=== PATIENT | male | born 1980 | race Caucasian/White ===

== ENCOUNTER 2023-04-14 14:10 | Observation (INO) | payer SELFPAY ==
[~2023-04-14] VITALS: Ht 182.9 cm; Wt 74.7 kg
[2023-04-14] MEDS ORDERED: NS IV 1000 ML 1,000 ML IV STA ×2 (15:12→16:13)
[2023-04-14] MEDS ORDERED: ONDANSETRON 4 MG/2 ML (SDV) Z0FRAN IVP ONE (15:15)
--- NOTE | 2023-04-14 15:17 | ED General ---
General Chief Complaint: Dizziness/Syncope Stated Complaint: DIZZY | DIFFICULTY WALKING | BLURRY VISION Nursing Triage Note: PT AMB TO ED BY POV WITH C/O DIZZINESS, SHAKINESS, MUSCLE CRAMPS, N/V, BLURRED VISION, AND LIU BEGINNING TODAY AROUND NOON. PT REPORTS HE WAS ROXANE WHEN SX STARTED, FELT FINE THIS MORNING. Source of Information: Patient Exam Limitations: No Limitations (SHONNA VANCE) History of Present Illness Date Seen by Provider: Apr 14, 2023 Time Seen by Provider: 15:14 Initial Comments Patient is a 42-year-old male who presents the ED with dizziness, shaking, diffuse muscle cramps, nausea with vomiting blurred vision and headache. Symptoms started around 12:00 today. 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 Started not feeling well started having shakiness and muscle cramps. Reported a diffuse headache and denies worst headache of his life. Started having blurry vision right before arrival but that improved. Reports cramps throughout his upper and lower extremities. Vomited 3 times right before arrival and noted a small blood tinge in his vomit with his last episode. Denies taking thing for pain. States he was fine this morning. Denies of any visual loss, unilateral weakness or sensory changes, change in mental status. According to family he is at his normal baseline. Patient is diaphoretic. Denies history of kidney disease, drug use, CHF, coronary artery disease, COPD. History of smoking. Denies body aches, chills, abdominal pain, diarrhea, dysuria, decreased urine output, cough, sohrtness of breath. (SHONNA VANCE) Allergies and Home Medications Allergies Coded Allergies: No Known Drug Allergies (Unverified , 04/14/23) Patient Home Medication List Home Medication List Reviewed: Yes (SHONNA VANCE) No Active Prescriptions or Reported Meds Review of Systems Review of Systems Constitutional: No chills; diaphoresis, dizziness, malaise, weakness EENTM: No ear pain, No double vision Respiratory: No cough Cardiovascular: No chest pain Genitourinary: No decreased output Musculoskeletal: No back pain, No joint pain Skin: No change in color, No change in hair/nails Psychiatric/Neurological: Denies Anxiety, Denies Depressed (SHONNA VANCE) All Other Systems Reviewed Negative Unless Noted: Yes (SHONNA VANCE) Past Fnjnlcb-Lvghlq-Kluaem Hx Patient Social History Tobacco Use?: Yes Tobacco type used: Cigarettes Smoking Status: Current Everyday Smoker Use of E-Cig and/or Vaping dev: No Substance use?: No Alcohol Use?: Yes Alcohol Frequency: Couple times a week Pt feels they are or have been: No (SHONNA VANCE) Immunizations Up To Date Influenza Vaccine Up-to-Date: No; Not Current First/Initial COVID19 Vaccinat: N/A (SHONNA VANCE) Past Medical History Surgery/Hospitalization HX: [facility] (SHONNA VANCE) Physical Exam Vital Signs Vital Signs - First Documented 04/14/23 14:40 Temp 36.7 Pulse 107 Resp 18 B/P (MAP) 143/79 (100) Pulse Ox 97 O2 Delivery Room Air (KATLYN DECKER MD) Vital Signs Capillary Refill : Less Than 3 Seconds (SHONNA VANCE) Height, Weight, BMI Height: '" Weight: lbs. oz. kg; 23.00 BMI Method: General Appearance: WD/WN, Other (Diaphoretic) Eyes: Bilateral Eye Normal Inspection, Bilateral Eye PERRL HEENT: PERRL/EOMI, TMs Normal, Normal ENT Inspection, Pharynx Normal Neck: Full Range of Motion, Normal Inspection, Non Tender, Supple Respiratory: Chest Non Tender, Lungs Clear, Normal Breath Sounds Cardiovascular: No Edema, No Gallop, No JVD, No Murmur, Tachycardia Gastrointestinal: Normal Bowel Sounds, No Organomegaly Back: Normal Inspection, No CVA Tenderness, No Vertebral Tenderness Extremity: Normal Capillary Refill, Normal Inspection, Normal Range of Motion Neurologic/Psychiatric: Alert, Oriented x3, No Motor/Sensory Deficits, Normal Mood/Affect, boss dyer II-XII Norm as Tested Skin: Normal Color (SHONNA VANCE) Focused Exam Lactate Level 04/14/23 16:02: Lactic Acid Level 3.01*H (KATLYN DECKER MD) Lactic Acid Level Laboratory Tests Test 04/14/23 16:02 Lactic Acid Level 3.01 MMOL/L (0.50-2.00) *H (KATLYN DECKER MD) Progress/Results/Core Measures Suspected Sepsis SIRS Temperature: Pulse: 107 Respiratory Rate: 18 Laboratory Tests 04/14/23 15:13: White Blood Count 12.2H Blood Pressure 143 /79 Mean: 100 04/14/23 16:02: Lactic Acid Level 3.01*H Laboratory Tests 04/14/23 15:13: Creatinine 1.12, Platelet Count 213, Total Bilirubin 1.2H (SHONNA VANCE) Results/Orders Lab Results Laboratory Tests Test 04/14/23 15:13 04/14/23 16:02 04/14/23 17:13 Range/Units White Blood Count 12.2 H 4.3-11.0 10^3/uL Red Blood Count 4.65 4.30-5.52 10^6/uL Hemoglobin 15.6 13.3-17.7 g/dL Hematocrit 45 40-54 % Mean Corpuscular Volume 96 80-99 fL Mean Corpuscular Hemoglobin 34 25-34 pg Mean Corpuscular Hemoglobin Concent 35 32-36 g/dL Red Cell Distribution Width 13.8 10.0-14.5 % Platelet Count 213 130-400 10^3/uL Mean Platelet Volume 10.8 9.0-12.2 fL Immature Granulocyte % (Auto) 1 % Neutrophils (%) (Auto) 84 H 42-75 % Lymphocytes (%) (Auto) 10 L 12-44 % Monocytes (%) (Auto) 5 0-12 % Eosinophils (%) (Auto) 0 0-10 % Basophils (%) (Auto) 0 0-10 % Neutrophils # (Auto) 10.2 H 1.8-7.8 10^3/uL Lymphocytes # (Auto) 1.3 1.0-4.0 10^3/uL Monocytes # (Auto) 0.7 0.0-1.0 10^3/uL Eosinophils # (Auto) 0.0 0.0-0.3 10^3/uL Basophils # (Auto) 0.1 0.0-0.1 10^3/uL Immature Granulocyte # (Auto) 0.1 0.0-0.1 10^3/uL Sodium Level 135 135-145 MMOL/L Potassium Level 5.4 H 3.6-5.0 MMOL/L Chloride Level 97 L 98-107 MMOL/L Carbon Dioxide Level 18 L 21-32 MMOL/L Anion Gap 20 H 5-14 MMOL/L Blood Urea Nitrogen 8 7-18 MG/DL Creatinine 1.12 0.60-1.30 MG/DL Estimat Glomerular Filtration Rate 84 BUN/Creatinine Ratio 7 Glucose Level 102 70-105 MG/DL Calcium Level 10.4 H 8.5-10.1 MG/DL Corrected Calcium 8.5-10.1 MG/DL Magnesium Level 2.2 1.6-2.4 MG/DL Total Bilirubin 1.2 H 0.1-1.0 MG/DL Aspartate Amino Transf (AST/SGOT) 214 H 5-34 U/L Alanine Aminotransferase (ALT/SGPT) 146 H 0-55 U/L Alkaline Phosphatase 79 40-136 U/L Total Creatine Kinase 478 H 30-200 U/L Total Protein 10.5 H 6.4-8.2 GM/DL Albumin 5.6 H 3.2-4.5 GM/DL Lipase 16 8-78 U/L Serum Alcohol 61 H <10 MG/DL Lactic Acid Level 3.01 *H 0.50-2.00 MMOL/L Urine Color YELLOW Urine Clarity CLEAR Urine pH 6.0 5-9 Urine Specific [place] 1.015 L 1.016-1.022 Urine Protein 2+ H NEGATIVE Urine Glucose (UA) NEGATIVE NEGATIVE Urine Ketones NEGATIVE NEGATIVE Urine Nitrite NEGATIVE NEGATIVE Urine Bilirubin NEGATIVE NEGATIVE Urine Urobilinogen 1.0 < = 1.0 MG/DL Urine Leukocyte Esterase NEGATIVE NEGATIVE Urine RBC (Auto) TRACE-I H NEGATIVE Urine RBC NONE /HPF Urine WBC NONE /HPF Urine Squamous Epithelial Cells NONE /HPF Urine Crystals NONE /LPF Urine Bacteria NEGATIVE /HPF Urine Casts PRESENT /LPF Urine Hyaline Casts 0-2 H /LPF Urine Mucus NEGATIVE /LPF Urine Culture Indicated NO Urine Opiates Screen NEGATIVE NEGATIVE Urine Oxycodone Screen NEGATIVE NEGATIVE Urine Methadone Screen NEGATIVE NEGATIVE Urine Propoxyphene Screen NEGATIVE NEGATIVE Urine Barbiturates Screen NEGATIVE NEGATIVE Ur Tricyclic Antidepressants Screen NEGATIVE NEGATIVE Urine Phencyclidine Screen NEGATIVE NEGATIVE Urine Amphetamines Screen NEGATIVE NEGATIVE Urine Methamphetamines Screen NEGATIVE NEGATIVE Urine Benzodiazepines Screen NEGATIVE NEGATIVE Urine Cocaine Screen NEGATIVE NEGATIVE Urine Cannabinoids Screen NEGATIVE NEGATIVE (KATLYN DECKER MD) Vital Signs/I&O 04/14/23 14:40 Temp 36.7 Pulse 107 Resp 18 B/P (MAP) 143/79 (100) Pulse Ox 97 O2 Delivery Room Air (KATLYN DECKER MD) Vital Signs/I&O Capillary Refill : Less Than 3 Seconds (SHONNA VANCE) Blood Pressure Mean: 100 ECG Comment Sinus rhythm, 76 bpm, QRS duration 89 MS, QTc 420 MS (SHONNA VANCE) Departure Communication (Admissions) Time/Spoke to Admitting Phy: 16:[address] Purvis general hospitalist. (SHONNA VANCE) Communication (PCP) Patient presents to the ED for dizziness, lightheadedness, blurry vision, vomiting, muscle cramping. Started around 12:00. 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 On arrival patient is diaphoretic and tachycardic. Muscle contractions noted. Started on a IV and started on fluids. CBC, CMP, magnesium, CPK, urinalysis, drug screen, alcohol level was obtained. Patient states he did drink alcohol over the weekend. Denies daily alcohol use. Denies of any other known medical problems. History of smoking. CBC shows slight elevated white blood count 12.2. Chemistry showed potassium 5.4, chloride 97, anion gap of 20 with normal kidney function. Total bilirubin 1.2, AST 214, ALT 146. Lactic acid was 3. CPK 478. Patient was given a second liter of fluid. Concern for early rhabdo my lysis. Change in liver function which may be result from alcohol as his alcohol level was 61. Hyperkalemia likely secondary to rhabdo. EKG did not show any evidence of arrhythmia, T wave changes, ST depression, prolonged QRS duration. Patient received Zofran for nausea. Did vomited 3-4 times here. Did have a small episode of bright red-tinged blood in his vomit. Had a soft abdomen without any specific tenderness. Imaging was held. Denies of any dark tarry stool. Contractions started to improve some as well as a cramping. Due to the elevated lactic acid, change in CPK with electrolyte abnormalities patient will be admitted for IV fluids. Patient was discussed with Dr. Purvis who agreed to accept the patient. (SHONNA VANCE) Impression Primary Impression: Rhabdomyolysis Additional Impression: Elevated liver enzymes Disposition: ADMITTED INPATIENT Condition: Stable Admissions Decision to Admit Reason: Admit from ER (General) Decision to Admit/Date: Apr 14, 2023 Time/Decision to Admit Time: 16:36 (SHONNA VANCE) Departure-Patient Inst. Referrals: NO,LOCAL PHYSICIAN (PCP/Family) Primary Care Physician Scripts No Active Prescriptions or Reported Meds ATTENDING PHYSICIAN NOTE: I was physically present as attending physician in the emergency department during the care of this patient, but I was not directly involved in the decision making or delivery of care for this patient. (KATLYN DECKER MD) SHONNA VANCE Apr 14, 2023 15:17 KATLYN DECKER MD Apr 16, 2023 04:39
[2023-04-14 15:20] LABS: BASOPHILS # (AUTO) 0.1 10^3/uL (0.0-0.1); BASOPHILS % (AUTO) 0 % (0-10); EOSINOPHILS % (AUTO) 0 % (0-10); HEMATOCRIT 45 % (40-54); HEMOGLOBIN 15.6 g/dL (13.3-17.7); LYMPHOCYTES # (AUTO) 1.3 10^3/uL (1.0-4.0); LYMPHOCYTES % (AUTO) 10 % (12-44); MEAN CORPUSCULAR HEMOGLOBIN 34 pg (25-34); MEAN CORPUSCULAR HGB CONC 35 g/dL (32-36); MEAN CORPUSCULAR VOLUME 96 fL (80-99); MEAN PLATELET VOLUME 10.8 fL (9.0-12.2); MONOCYTES # (AUTO) 0.7 10^3/uL (0.0-1.0); MONOCYTES % (AUTO) 5 % (0-12); NEUTROPHILS # (AUTO) 10.2 10^3/uL (1.8-7.8); NEUTROPHILS % (AUTO) 84 % (42-75); PLATELET COUNT 213 10^3/uL (130-400); WHITE BLOOD COUNT 12.2 10^3/uL (4.3-11.0)
[2023-04-14 15:36] LABS: ALBUMIN 5.6 GM/DL (3.2-4.5); CHLORIDE 97 MMOL/L (98-107); POTASSIUM 5.4 MMOL/L (3.6-5.0); SODIUM 135 MMOL/L (135-145)
[2023-04-14 15:38] LABS: CALCIUM 10.4 MG/DL (8.5-10.1)
[2023-04-14 15:39] LABS: GLUCOSE 102 MG/DL (70-105); TOTAL PROTEIN 10.5 GM/DL (6.4-8.2)
[2023-04-14 15:40] LABS: CARBON DIOXIDE 18 MMOL/L (21-32)
[2023-04-14 15:41] LABS: BILIRUBIN,TOTAL 1.2 MG/DL (0.1-1.0)
[2023-04-14 15:42] LABS: ALKALINE PHOSPHATASE 79 U/L (40-136); CREATININE SERUM 1.12 MG/DL (0.60-1.30); GFR ESTIMATED 84
[2023-04-14 15:43] LABS: BUN/CREATININE RATIO 7
[2023-04-14 15:45] LABS: ALANINE AMINOTRANSFERASE 146 U/L (0-55); MAGNESIUM 2.2 MG/DL (1.6-2.4)
[2023-04-14 15:46] LABS: CREATINE KINASE 478 U/L (30-200); LIPASE 16 U/L (8-78)
[2023-04-14 17:20] LABS: BILIRUBIN,URINE NEGATIVE (NEGATIVE); CLARITY,URINE CLEAR; COLOR,URINE YELLOW; GLUCOSE, URINE (UA) NEGATIVE (NEGATIVE); KETONES,URINE NEGATIVE (NEGATIVE); LEUKOCYTE ESTERASE ,URINE NEGATIVE (NEGATIVE); NITRITE,URINE NEGATIVE (NEGATIVE); PROTEIN,URINE 2+ (NEGATIVE)
[2023-04-14 17:27] VITALS: BP 146/87
[2023-04-14] MEDS ORDERED: CALCIUM CARBONATE 500 MG (TUMS) TAB.CHEW PO PRN (17:30)
[2023-04-14] MEDS ORDERED: ONDANSETRON 4 MG/2 ML (SDV) Z0FRAN IV PRN (17:30)
[2023-04-14] MEDS ORDERED: MELATONIN 3 MG TABLET PO PRN (17:30)
[2023-04-14] MEDS ORDERED: polyethylene glycoL POWDER 17 GM (MIRALAX) PACK PO PRN (17:30)
[2023-04-14] MEDS ORDERED: ANTACID SUSP 30 ML UDC (MYLANTA) PO PRN (17:30)
[2023-04-14 17:37] LABS: AMPHETAMINE SCREEN, URINE NEGATIVE (NEGATIVE); BARBITURATE SCREEN URINE NEGATIVE (NEGATIVE); BENZODIAZEPINES SCREEN URINE NEGATIVE (NEGATIVE); CANNABINOID SCREEN, URINE NEGATIVE (NEGATIVE); COCAINE SCREEN URINE NEGATIVE (NEGATIVE); METHADONE STAT NEGATIVE (NEGATIVE); OPIATE SCREEN URINE NEGATIVE (NEGATIVE); OXYCODONE STAT NEGATIVE (NEGATIVE); PROPOXYPHENE STAT NEGATIVE (NEGATIVE); TRICYCLIC ANTIDEPRESSANTS SCRE NEGATIVE (NEGATIVE)
[2023-04-14 17:40] LABS: BACTERIA,URINE NEGATIVE /HPF; HYALINE CASTS, URINE 0-2 /LPF
[2023-04-14] MEDS: NS IV 1000 ML 1,000 ML IV SCH (17:48)
[2023-04-14] MEDS ORDERED: ACETAMINOPHEN 500 MG TAB (TYLENOL) PO PRN (19:30)
[2023-04-14 20:03] VITALS: BP 149/76
[2023-04-14 23:10] VITALS: BP 133/75
[2023-04-15] MEDS: NS IV 1000 ML 1,000 ML IV SCH ×3 (01:16→13:51)
[2023-04-15 03:42] VITALS: BP 133/78
[2023-04-15 05:38] LABS: HEMOGLOBIN 13.3 g/dL (13.3-17.7)
[2023-04-15 05:51] LABS: ALBUMIN 4.1 GM/DL (3.2-4.5); BILIRUBIN,TOTAL 1.7 MG/DL (0.1-1.0); CALCIUM 8.8 MG/DL (8.5-10.1); CREATININE SERUM 0.75 MG/DL (0.60-1.30); POTASSIUM 3.9 MMOL/L (3.6-5.0)
[2023-04-15 07:23] VITALS: BP 149/82
--- NOTE | 2023-04-15 10:57 | History & Physical-Hospitalist ---
History of Present Illness HPI/Chief Complaint Patient is a 42-year-old male who presented to the emergency department with muscle cramping. 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 He states they were very severe and he could see the cramps. He also had some nausea and vomiting and got dizzy. He was found to have an elevated CK in the ER and was unable to tolerate oral intake so was admitted for observation. This morning he reports that his muscles are still sore but he has had no further cramping and is feeling much better. He has already been up and ambulated to t he bathroom. He has not yet eaten very much though but has not vomited again since yesterday. Source: patient Date Seen 04/15/23 Time Seen by a Provider: 10:56 Attending Physician No,Local Physician PCP Admitting Physician: Ryan Purvis MD Attending Physician: Ryan Purvis MD Referring Physician Date of Admission Apr 14, 2023 at 17:16 Home Medications & Allergies Home Medications Reviewed patient Home Medication Reconciliation performed by pharmacy medication reconciliations electron beam photo mask technician and/or nursing. Patients Allergies have been reviewed. Allergies Allergies Coded Allergies No Known Drug Allergies (Unverified04/14/23) Past Mtlpmol-Adthgm-Biqtuw Hx Patient Social History Marrital Status: Employed/Student: employed Tobacco Use?: Yes Tobacco type used: Cigarettes Smoking Status: Current Everyday Smoker Smokeless Tobacco Frequency: Never a User Use of E-Cig and/or Vaping dev: No Substance use?: No Alcohol Use?: No Alcohol Frequency: Couple times a week Pt feels they are or have been: No Immunizations Up To Date First/Initial COVID19 Vaccinat: N/A Current Status Advance Directives: No Communicates: Verbally Primary Language: Monegasque Preferred Spoken Language: Monegasque Is interpretation needed?: No Implanted or Applied Medical D: None Review of Systems Constitutional: see HPI Physical Exam Physical Exam Vital Signs Vital Signs - First Documented 04/14/23 14:40 Temp 36.7 Pulse 107 Resp 18 B/P (MAP) 143/79 (100) Pulse Ox 97 O2 Delivery Room Air Capillary Refill : Less Than 3 Seconds Height, Weight, BMI Height: '" Weight: lbs. oz. kg; 22.33 BMI Method: General Appearance: No Apparent Distress, Thin Respiratory: Lungs Clear, No Respiratory Distress Cardiovascular: Regular Rate, Rhythm, No Murmur Gastrointestinal: Normal Bowel Sounds, Non Tender, Soft Neurologic/Psychiatric: Alert, Oriented x3 Results Results/Procedures Labs Laboratory Tests 04/14/23 15:13 04/15/23 05:25 Patient resulted labs reviewed. Assessment/Plan Admission Diagnosis Rhabdomyolysis Admission Status: Observation Assessment and Plan Rhabdomyolysis TORIE Continue IVF CK up just slightly today Symptoms improving and up ambulating Potentially DC home this afternoon if he continues to improve RYAN PURVIS MD Apr 15, 2023 10:57
[2023-04-15 11:25] VITALS: BP 126/68
--- NOTE | 2023-04-15 14:08 | Discharge Inst-Simple/Standard ---
Discharge Inst-Standard Discharge Medications New, Converted or Re-Newed RX: Transmitted to Pharmacy Patient Instructions/Follow Up Plan of Care/Instructions/FU: Please continue to take your medications as written. Please follow up with your primary care doctor to follow up this hospital stay. Activity as Tolerated: Yes Discharge Diet: No Restrictions Return to The Hospital For: Chest pain, muscle cramps, low urine output, nausea or vomiting, shortness of breath, fever, weakness, if you feel you are getting worse. RYAN RIVERA MD Apr 15, 2023 14:08
[2023-04-15 15:23] VITALS: BP 126/68
== END 2023-04-15 15:26 | disposition home or self-care (01) ==
LOC: EDUNIT# 14:10 → ER 14:14 → 4TH 17:10 → UNDOADMOB 17:16 → 4TH 17:16 → UNDODISOB 04-15 15:26
PROVIDERS: ADMIT Family Medicine; ATTEND Family Medicine
DX: M62.82 Rhabdomyolysis (principal); N17.9 Acute kidney failure, unspecified; F17.210 Nicotine dependence, cigarettes, uncomplicated; R74.01 Elevation of levels of liver transaminase levels; Z28.310 Unvaccinated for COVID-19
CPT/HCPCS: 80053 ×2; 80306; 81000; 82550 ×2; 83605; 83690; 83735; 85025; 85027; 93005; 99284; G0378; G0480; 36415; 80320